=== PATIENT | female | born 1990 | race Caucasian/White ===

== ENCOUNTER → 2018-09-27 | Emergency (ER) | payer OTHER ==
[~2018-09-27] VITALS: Ht 177.8 cm; Wt 83.9 kg
[2018-09-27 11:24] VITALS: BP 138/97
--- NOTE | 2018-09-27 12:47 | NUR ---
PT. VERBALIZED UNDERSTANDING OF AFTERCARE INSTRUCTIONS.Patient discharged to home in stable condition. Written and verbal after care instructions given. Patient verbalizes understanding of instruction.
== END | disposition home or self-care (01) ==
LOC: ER 11:12
DX: R51 Headache (principal); M54.2 Cervicalgia; V49.49XA Driver injured in collision with other motor vehicles in traffic accident, initial encounter; Y93.89 Activity, other specified; Y92.410 Unspecified street and highway as the place of occurrence of the external cause; Y99.8 Other external cause status